=== PATIENT | female | born 1975 | race Caucasian/White ===

== ENCOUNTER → 2024-09-25 15:06 | Outpatient (REF) | payer OTHER, SELFPAY | LOC: WDC 15:06 | PROVIDERS: ATTENDING PHYSICIAN Obstetrics & Gynecology; FAMILY PHYSICIAN Internal Medicine | DX: Z12.31 Encounter for screening mammogram for malignant neoplasm of breast (principal) | CPT/HCPCS: 77063; 77067 ==

== ENCOUNTER 2025-06-11 06:33 | Day surgery (SDC) | payer OTHER, SELFPAY | END 2025-06-11 11:40 | disposition home or self-care (01) | LOC: GI 06:33 | PROVIDERS: ATTENDING PHYSICIAN Internal Medicine Gastroenterology | DX: Z12.11 Encounter for screening for malignant neoplasm of colon (principal); Z83.719 Family history of colon polyps, unspecified; K64.8 Other hemorrhoids; K57.30 Diverticulosis of large intestine without perforation or abscess without bleeding | CPT/HCPCS: G0105; 88305 ==